=== PATIENT | male | born 1940 | race Caucasian/White ===

== ENCOUNTER 2020-08-14 05:20 | Inpatient (IN) | payer OTHER ==
[~2020-08-14] VITALS: Ht 172.7 cm; Wt 70.8 kg
[2020-08-14 05:40] LABS: BASOPHILS ABSOLUTE AUTO 0.07 K/mm3 (0.00-0.23); BASOPHILS PERCENT AUTO 1 % (0-2); EOSINOPHILS ABSOLUTE AUTO 0.18 K/mm3 (0.00-0.68); EOSINOPHILS PERCENT AUTO 2 % (0-6); Hematocrit 43.7 % (37.0-53.0); Hemoglobin 14.1 g/dL (13.5-17.5); IMMATURE GRAN ABSOLUTE AUTO 0.05 K/mm3 (0.00-0.10); IMMATURE GRAN PERCENT AUTO 1 % (0-1); LYMPHOCYTES ABSOLUTE AUTO 1.71 K/mm3 (0.84-5.20); LYMPHOCYTES PERCENT AUTO 18 % (21-46); MONOCYTES ABSOLUTE AUTO 0.92 K/mm3 (0.16-1.47); MONOCYTES PERCENT AUTO 9 % (4-13); Mean Corpuscular HGB 32.4 pg (26.0-34.0); Mean Corpuscular HGB Conc 32.3 g/dL (31.5-36.5); Mean Corpuscular Volume 101 fL (80-100); Mean Platelet Volume 11.2 fL (9.1-12.4); NEUTROPHILS ABSOLUTE AUTO 6.85 K/mm3 (1.96-9.15); NEUTROPHILS PERCENT AUTO 70 % (41-73); Platelet Count 292 K/mm3 (150-400); RDW Coefficient Variation 13.2 % (11.7-14.2); RDW Standard Deviation 49.1 fL (35.1-46.3); Red Blood Cell Count 4.35 M/mm3 (4.30-5.90); White Blood Cell Count 9.78 K/mm3 (4.00-11.30)
[2020-08-14 05:56] LABS: Albumin, Blood 3.2 g/dL (3.4-5.0); Albumin/Globulin Ratio 0.9 (0.8-1.8); Bilirubin, Total 2.4 mg/dL (0.1-1.0); Bun/Creatinine Ratio 29.6 (12.0-20.0); Calcium, Blood 8.7 mg/dL (8.5-10.1); Creatinine, Blood 1.35 mg/dL (0.60-1.20); Globulin, Blood 3.4 g/dL (2.2-4.0); Potassium, Blood 4.4 mmol/L (3.5-5.5); Total Protein, Blood 6.6 g/dL (6.4-8.2); Troponin I 0.044 ng/mL (0.000-0.040)
[2020-08-14 06:22] LABS: PCO2 Arterial 45.4 mmHg (35-45); PO2 Arterial 89.2 mmHg (80-100); pH Blood Arterial 7.37 (7.35-7.45)
[2020-08-14 09:12] LABS: PCO2 Arterial 43.6 mmHg (35-45); PO2 Arterial 93.2 mmHg (80-100); pH Blood Arterial 7.29 (7.35-7.45)
--- NOTE | 2020-08-14 10:36 | NUR ---
Spoke with hospitalist Freddie and discussed case. Pt to the ED with Respiratory Failure. Spouse Meg having difficulty with making a decision regarding Pt's code status. Pt originally told ED Provider he did not want to be intubated. Pt resting on gurny upon arrival. Pt's ED RN at bedside providing care. Spouse Meg also at bedside. Pt agitated and anxious throughout the visit. Ativan given X2 by his RN to assist with symptom management. Pt on BIPAP. Engaged in therapeutic discussion regarding code status. Discussed Pt's report to ED Provider regarding his wishes. Educated on life sustaining treatment including risk factors and implications of CPR. Answered questions and offered therapeutic listening. Meg is intermittently tearful and reports having difficulty with making a decision regarding Pt's code status. Continued therapeutic listeing and validated concerns. Listened as Meg expresses her wishes would be to do everything but does not think Pt would want that. Meg reports Pt stated to her during a casual conversation in the past saying "when it my time, let me go". Continued therapeutic listening. After several minutes answering questions, Meg reports she will honor his wishes of no CPR and no Intubation. Meg does report Pt would be ok with defibrillation and medications. Spoke with hospitalist Freddie and relayed wishes. Placed code status order for Limited Code of Defribillation and medications only per V/O from Freddie. Escorted spouse Meg to ICU waiting room and continued therapeutic listening and supportive visit. Provided Palliative Care contact information and instructed Meg to call with any questions or concerns. Meg is agreeable for Pt to received continued PC visits. Spoke with Pt's DISTRIBUTION LINEMAN Chery and discussed case. Palliative Care will remain available.
--- NOTE | 2020-08-14 11:00 | NUR ---
Assumed care of pt upon arrival to ICU 4 from emergency department at 1005. Pt transferred to ICU bed [place] [facility] [place] using slider sheet and 4 staff. Pt BiPAP dependent. BiPAP 15/8 and 30%. SpO2 90% or greater. Breathing labored with accessory muscle use noted, as well as retractions. Pt is limited code, with no intubation or CPR allowed. Lungs dim t/o. Pt agitated. Moves all extremities and attempting to remove BiPAP, as well as swinging legs over side rail of bed. Does not follow commands. Speech incomprehensible. Placed in bilat wrist restraints for BiPAP dependence with confusion and attempting to remove mask. Plan for IV precedex to manage agitation. Echo obtained, but pt very agitated and not holding still. Wallace catheter placed to obtain specimen and measure strict output with diuresis. Abd has atypical appearance due to scarring from previous surgeries. Pt's states appearace is baseline. No tenderness on palpation. ST per monitor. BP stable. Pt's spouse states they are not local to this area. They are from [place] and visited the [facility] for their anniversary. States pt was recently in ED at [place] for "popping a lung" and states he had "A chest tube placed and three cardioversions". States the chest tube was in place for three days. States that at baseline, pt is able to go to his doctor appointments and perform own self care. 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 Pt is currently DNI and no CPR. Meds and defibrillation okay. States pt has hx of CHF and takes lasix as needed. States his weight gain is very subtle and she is cautious with lasix because "his kidneys are bad too".
[2020-08-14 11:29] LABS: Source, Urine Catheter
[2020-08-14 11:35] LABS: Bilirubin, Urine Neg (Neg); Blood, Urine 2+ (Neg); Glucose Qualitative, Urine Neg (Neg); Ketones, Urine 1+ (Neg); Leukocyte Esterase, Urine Neg (Neg); Nitrite, Urine Neg (Neg); Protein, Urine 2+ (Neg); Specific Gravity, Urine 1.025 (1.003-1.022); Urobilinogen, Urine 1+ (Normal)
[2020-08-14 11:47] LABS: U Amphetamine Screen Not Detected; U Barbituate Screen Not Detected; U Benzodiazapine Screen Not Detected; U Buprenorphine Screen Not Detected; U Cannabinoids Screen Not Detected; U Cocaine Screen Not Detected; U Methadone Screen Not Detected; U Methamphetamine Screen Not Detected; U Opiates Screen Not Detected; U Oxycodone Screen Not Detected; U Phencyclidine Screen Not Detected; U Propoxyphene Screen Not Detected
[2020-08-14 11:56] LABS: Appearance, Urine Clear (Clear); Color, Urine Yellow (P-Yellow)
[2020-08-14 12:02] LABS: Mucus Mod (0-Heavy)
[2020-08-14 12:03] LABS: Squamous Epithelial Cells Few /hpf (Few)
[2020-08-14 12:04] LABS: Bacteria Rare /hpf
--- NOTE | 2020-08-14 13:00 | NUR ---
Boyd ASSISTED LIVING EXECUTIVE DIRECTOR to see patient. Provider states precedex is okay for maximum rate of 1.4 mcg/kg/hr, however he would like staff to use ativan to manage agitation and work on titrating precedex down to preserve BP. Rechecked lactic acid, as result of 8.3 is questioned. Plan to continue with BiPAP.
[2020-08-14 13:06] LABS: Base Excess Venous -4.5 mmol/L; Bicarbonate Venous 20.9 mmol/L (24.0-30.0); PCO2 Venous 42.5 mmHg (38-42); PO2 Venous 135 mmHg (38-42); pH Blood Venous 7.32 (7.34-7.37)
--- NOTE | 2020-08-14 13:16 | NUR ---
Echocardiogram completed.
[2020-08-14 13:21] LABS: Bun/Creatinine Ratio 26.9 (12.0-20.0); Creatinine, Blood 1.71 mg/dL (0.60-1.20); Potassium, Blood 4.7 mmol/L (3.5-5.5)
[2020-08-14 13:54] LABS: SARS-Cov-2 (COVID-19) PCR, MMC NEGATIVE (NEGATIVE)
[2020-08-14] MEDS ORDERED: ALBU90OI INH (14:15)
[2020-08-14] MEDS ORDERED: Amiodarone HCl200 MG PO (14:34)
[2020-08-14] MEDS ORDERED: ATOR20 PO (15:20)
[2020-08-14] MEDS ORDERED: ELIQUIS5 MG PO (15:20)
[2020-08-14] MEDS ORDERED: SYMBICORT 160-4.6 GM INH (15:22)
[2020-08-14] MEDS ORDERED: FISH OIL 1,2001 EAC7 PO (15:22)
[2020-08-14] MEDS ORDERED: FURO40 PO (15:23)
[2020-08-14] MEDS ORDERED: METO25ER PO (15:23)
[2020-08-14] MEDS ORDERED: CENTRUM SILVER1 EAC2 PO (15:24)
[2020-08-14] MEDS ORDERED: TIOT18 INH (15:29)
[2020-08-14] MEDS ORDERED: Percocet 5-3251 EACH PO (15:29)
--- NOTE | 2020-08-14 17:19 | NUR ---
Precedex down to 0.2 mcg/kg/hr. Agitation with repositioning and oral care, but pt calms down when stimulus is removed. Dr Miguel in to see pt. No new orders at this time. Spouse plans to stay at bedside beyond visiting hours as she does not have a place to day. Spouse effectively decreases pt's agitation when she is at bedside.
--- NOTE | 2020-08-14 18:33 | NUR ---
SUMMARY Pt on 0.2 mcg/kg/hr precedex. Pt has not had ativan since in ED. Ativan did not resolve agitation, so precedex started. Pt is responsive to pressure, with repositioning or oral care. Does not follow commands. Does not answer questions. Remains on BiPAP 18/8 and 35%. No accessory muscle use or retractions noted. COVID negative. SR per monitor with low-normal BP. Good urine output from cohen catheter. Spouse plans to spend night at pt's bedside. Will continue to closely monitor until care handoff and bedside report with oncoming RN.
--- NOTE | 2020-08-14 19:45 | NUR ---
ASSESSMENT/ASSUMED CARE PT LYING IN BED WITH BIPAP ON. AT BEDSIDE. PT OPENS EYES AND STARTS PULLING AT RESTRAINTS TO VERBAL STIMULI. PT VERY [id number]. PT QUIETS WITH REASSURANCE. BACK TO SLEEP QUICKLY. LUNGS DECREASED THROUGHOUT ON BIPAP 18/8 FIO2 30%. RESP EVEN AND NONLABORED. NO SOB OR COUGH NOTED. HEART RATE IRREGULAR. BP LOW BUT STABLE. NO EDEMA. BT+ BUT HYPOACTIVE. ABD SOFT AND NONTENDER. RICKETTS CATH PATENT DRAINING YELLOW URINE. IV 20G TO LEFT AC SALINE LOCKED, SITE CLEAR, FLUSHED WITHOUT DIFFICULTY. IV 20G TO LEFT FOREARM WITH PRECEDEX AT 0.2 MCQ/KG/HR, SITE CLEAR. BILAT SOFT WRIST RESTRAINTS ON. ANSWERED QUESTIONS FOR . PT SLEEPING.
--- NOTE | 2020-08-14 21:22 | NUR ---
ADL PT SLEEPING, AWAKENS TO VERBAL STIMULI. PT FOLLOWING INSTRUCTIONS REGARDING ORAL CARE AND ASSISTING WITH TURNING. BIPAP REMOVED FOR ORAL CARE, SPO2 DOWN TO 88% AFTER 5 MIN. BIPAP REAPPLIED. PT RESTING QUIETLY. BED MADE FOR . SUPPORT GIVEN TO .
--- NOTE | 2020-08-14 23:58 | NUR ---
REASSESSMENT PT AWAKENS EASILY AND FOLLOWING INSTRUSTIONS. SPEECH CLEAR BUT SLOW. PT ASKING QUESTIONS AND ANSWERING APPROP. ASSISTING WITH TURNING. ORAL CARE DONE. RESTRAINTS OFF FOR TRIAL RUN. REPOSITIONED. BIPAP BACK ON. O2 SATS DOWN TO 92% ON ROOMAIR FOR 5 MIN, BACK UP TO 98% ON THE BIPAP. PT BACK TO SLEEP QUICKLY
[2020-08-15 03:32] LABS: BASOPHILS ABSOLUTE AUTO 0.01 K/mm3 (0.00-0.23); BASOPHILS PERCENT AUTO 0 % (0-2); EOSINOPHILS PERCENT AUTO 0 % (0-6); Hematocrit 39.1 % (37.0-53.0); IMMATURE GRAN ABSOLUTE AUTO 0.05 K/mm3 (0.00-0.10); IMMATURE GRAN PERCENT AUTO 0 % (0-1); LYMPHOCYTES ABSOLUTE AUTO 0.36 K/mm3 (0.84-5.20); LYMPHOCYTES PERCENT AUTO 3 % (21-46); MONOCYTES ABSOLUTE AUTO 0.33 K/mm3 (0.16-1.47); MONOCYTES PERCENT AUTO 3 % (4-13); Mean Corpuscular HGB 32.9 pg (26.0-34.0); Mean Corpuscular HGB Conc 33.2 g/dL (31.5-36.5); Mean Corpuscular Volume 99 fL (80-100); Mean Platelet Volume 11.2 fL (9.1-12.4); NEUTROPHILS ABSOLUTE AUTO 11.14 K/mm3 (1.96-9.15); NEUTROPHILS PERCENT AUTO 94 % (41-73); Platelet Count 198 K/mm3 (150-400); RDW Coefficient Variation 13.2 % (11.7-14.2); RDW Standard Deviation 47.4 fL (35.1-46.3); Red Blood Cell Count 3.95 M/mm3 (4.30-5.90); White Blood Cell Count 11.89 K/mm3 (4.00-11.30)
[2020-08-15 03:45] LABS: International Normalized Ratio 1.3; Prothrombin Time Results 13.8 Sec (9.7-11.5)
[2020-08-15 03:54] LABS: Albumin, Blood 2.9 g/dL (3.4-5.0); Bilirubin, Total 1.9 mg/dL (0.1-1.0); Calcium, Blood 8.3 mg/dL (8.5-10.1); Creatinine, Blood 1.43 mg/dL (0.60-1.20); Magnesium, Blood 2.5 mg/dL (1.6-2.4); Phosphorus, Blood 4.3 mg/dL (2.5-4.9); Potassium, Blood 3.9 mmol/L (3.5-5.5); Total Protein, Blood 5.9 g/dL (6.4-8.2)
[2020-08-15 05:23] LABS: PCO2 Arterial 39.8 mmHg (35-45); PO2 Arterial 90.4 mmHg (80-100); pH Blood Arterial 7.47 (7.35-7.45)
--- NOTE | 2020-08-15 06:02 | NUR ---
SHIFT SUMMARY PT RESTING QUIETLY AT THIS TIME. AWAKENS TO VERBAL STIMULI. FOLLOWING INSTRUCTIONS AND ANSWERING QUESTIONS. AT BEDSIDE. PT SPEECH MORE CLEAR. STATES,"THIS IS MORE HOW HE NORMALLY IS". PT REMOVED FROM RESTRAINTS AT MIDNIGHT. PT ASSISTING WITH TURNING AND ORAL CARE. PRECEDEX CONT AT 0.2 MCQ/KG/HR. VSS. PT STATES,"I'M FEELING MUCH BETTER". REPORT TO ON COMING NURSE
--- NOTE | 2020-08-15 07:15 | NUR ---
Assumed care of pt at 0700. Bedside report received from Corinna GONSALES. Pt A&O x 4. Answers questions, follows commands, verbalizes needs. Pleasant and cooperative with care. Precedex at 0.2 mcg/kg/hr for BiPAP tolerance. Pt on BiPAP 18/8 and 30% FiO2. SpO2 90% or greater. SR per monitor. BP stable. Pt's spouse at bedside. Wallace catheter patent and draining.
--- NOTE | 2020-08-15 11:02 | NUR ---
Pt given break from BiPAP for oral care and PO medications, pt tolerated this well. Offered PO amiodarone, but pt declined because "my manager managed backup services stopped the amiodarone". Pt talking with in room, very pleasant and cooperative. Pt converted into AFIB with RVR, rate 135-145. BiPAP replaced, but this did not resolve AFIB with RVR. Dr Miguel notified. Digoxin given, but this did not work. 2.5 mg IV metoprolol given x 2. HR averaging 125-135. BP stable. Will continue to closely monitor.
--- NOTE | 2020-08-15 11:31 | NUR ---
Spoke with Dr Miguel this AM and discussed case. Waiting on medical records to determine Pt's baseline. Pt resting in bed with his eyes closed upon arrival. Pt on BIPAP. Pt's spouse Meg at bedside. Offered supportive visit and therapeutic listening. Meg expresses appreciation of visit. Spoke with Primary RN Chery and discussed case. Palliative Care will remain available.
--- NOTE | 2020-08-15 13:50 | NUR ---
DR. GENAO - [facility] SPOKE WITH DR. GENAO'S OFFICE IN [facility]. ACCORDING TO RECORDS, DR. GENAO STOPPED PT'S HOME AMIODARONE AFTER THE OFFICE VISIT ON 02/08/20 DUE TO PT BEING IN NORMAL SINUS RHYTHM AT THAT TIME. THEY STATE DR. GENAO WROTE IN HIS NOTE THAT HE WOULD CONSIDER ABLATION IF A. FIB RECURRED.
--- NOTE | 2020-08-15 15:16 | NUR ---
No progress on controlling atrial fibrillation. Cardiology consulted. Dr Flynn recommended metoprolol tartrate 25 mg Q6H instead of metoprolol succinate. Provider aware of pt's low BP. Plan to start amiodarone drip, no bolus.
--- NOTE | 2020-08-15 16:20 | NUR ---
Spoke with demurrage clerk prior to Pt visit and discussed case. Pt resting in bed upon arrival. Pt reports feeling better but is still struggling with memory. Spouse Meg is at bedside and states "he is still fuzzy". Engaged in therapeutic discussion regarding advanced care planning. Educated on disease process including trajectory of disease. Discussed the importance of planning for the future and having routine conversations with PCP regarding progression of disease. Discussed the importance of developing multiple plans as disease process takes its coarse. Educated on advanced directive and POLST. Educated on each section of AD to complete and the importance of appointing a healthcare customer loyalty representative. Educated on each section of POLST to complete. Educated on life sustaining measures including risk factors and implications of CPR. Pt reports being ok wit CPR and intuabted temporarily. Pt reports when he told the ED provider he didn't want to be intubated he was thinking about if he contrated COVID-19 and the risks of intubation with this disease. Confirmed Pt's wishes for full code status with Pt reporting wishes to be full code. Answered questions and offered therapeutic listening. Pt and spouse expresses appreciation of visit and report no other concerns at this time. Pt and spouse will consider completing AD and POLST at home. Spoke with Primary RN Chery and relayed Pt's wishes for full code. Chery will contact hospitalist for order change. Palliative Care will remain available.
--- NOTE | 2020-08-15 18:21 | NUR ---
SUMMARY Pt A&O x 4. Answers questions, follows commands, verbalizes needs. Pleasant and cooperative with care. Precedex has been off since 1100, when BiPAP was taken off. Pt has not worn BiPAP since. Currently on 2 LPM NC. SpO2 90% or greater. Atrial fibrillation per monitor since this AM. Digoxin IV and metoprolol IV given, but were not effective. Cardiology consulted. Amiodarone drip started. Currently at 1 mg/min. Pt remains in atrial fibrillation, rate 125-135. BP low-normal. Wallace catheter draining clear, yellow urine. Will continue to closely monitor until care handoff and bedside report with oncoming RN.
--- NOTE | 2020-08-15 22:00 | NUR ---
ASSUMED PT CARE FROM ILDA LEWIS AT 1915 PT SITTING UP IN BED. ALERT AND ORIENTED AND ABLE TO COMMUNICATE NEEDS. AT BEDSIDE. PT IS AFIB WITH HR 130'S. BP'S STABLE AT THIS TIME. AMIODARONE INFUSING AT 1MG/MIN. 2L VIA NC; SPO2 >95%. PT DENIES ANY SOB OR CHEST PAIN AT THIS TIME. RICKETTS CATH IS PATENT AND DRAINING TO GRAVITY. CALL LIGHT WITHIN REACH; PT ABLE TO MAKE NEEDS KNOWN.
[2020-08-16 03:48] LABS: Hematocrit 40.5 % (37.0-53.0); Hemoglobin 13.2 g/dL (13.5-17.5); Mean Corpuscular HGB 32.7 pg (26.0-34.0); Mean Corpuscular HGB Conc 32.6 g/dL (31.5-36.5); Mean Corpuscular Volume 100 fL (80-100); Mean Platelet Volume 11.4 fL (9.1-12.4); Platelet Count 245 K/mm3 (150-400); RDW Coefficient Variation 13.2 % (11.7-14.2); RDW Standard Deviation 48.6 fL (35.1-46.3); Red Blood Cell Count 4.04 M/mm3 (4.30-5.90); White Blood Cell Count 19.68 K/mm3 (4.00-11.30)
[2020-08-16 04:07] LABS: Albumin, Blood 3.1 g/dL (3.4-5.0); Albumin/Globulin Ratio 1.1 (0.8-1.8); Bilirubin, Total 1.2 mg/dL (0.1-1.0); Bun/Creatinine Ratio 43.7 (12.0-20.0); Calcium, Blood 8.7 mg/dL (8.5-10.1); Creatinine, Blood 1.35 mg/dL (0.60-1.20); Globulin, Blood 2.8 g/dL (2.2-4.0); Total Protein, Blood 5.9 g/dL (6.4-8.2)
--- NOTE | 2020-08-16 05:20 | NUR ---
END OF SHIFT SUMMARY PT SLEPT FOR MOST OF SHIFT; ABLE TO REPOSITION SELF AND MAKE NEEDS KNOWN. HR WAS LOW 100'S WHILE SLEEPING; UP TO 130'S WHILE AWAKE. REMAINS IN AFIB. AMIODARONE IS AT 0.5MG/MIN WITH 9.5 HOURS LEFT. PT NOTED TO BECOME SOB WHILE LYING FLAT OR WITH ANY EXERTION. 2L OF OXYGEN VIA NC; PT ONLY TOLERATED BIPAP FOR A SHORT AMOUNT OF TIME. VSS, SEE FLOWSHEET. REMAINED AT BEDSIDE ALL NIGHT. VERY SUPPORTIVE OF CARES. CALL LIGHT WITHIN REACH. WILL CONTINUE TO MONITOR UNTIL REPORT IS HANDED OFF TO ONCOMING RN.
--- NOTE | 2020-08-16 10:01 | NUR ---
DR. ADDISON HERE-ASSESSED PT. PLANS FOR D/C AMIODARONE GTT TODAY, START PO. PCU STATUS. ENCOURAGED CARDIAC/PULMONARY REHAB. PT UP TO STAND AT BEDSIDE WITH PHYSICAL THERAPIST-SOB WITH ACTIVITY. DECONDITIONED, WEAK WITH MOVEMENT. AT BEDSIDE
--- NOTE | 2020-08-16 14:17 | NUR ---
DENIES COMPLAINTS. CONTINUE TO MONITOR
--- NOTE | 2020-08-16 15:43 | NUR ---
DIURESING AFTER LASIX THIS AM, UO 1800 CC. REMAINS TACHYCARDIC 110'S. RESPIRATIONS UNLABORED AT REST, INCREASED EFFORT WITH ANY ACTIVITY. GOOD SPIRITS, COOPERATIVE.
--- NOTE | 2020-08-16 18:58 | NUR ---
UP TO CHAIR-DID WELL WITH TRANSFER-ABLE TO WALK FEW STEPS. NO SOB WITH ACTIVITY. USING PEP VALVE. GOOD APPETITE. VSS, AFIB 100'S.
[2020-08-17 03:21] LABS: Hematocrit 41.4 % (37.0-53.0); Hemoglobin 13.6 g/dL (13.5-17.5); Mean Corpuscular HGB 32.8 pg (26.0-34.0); Mean Corpuscular HGB Conc 32.9 g/dL (31.5-36.5); Mean Corpuscular Volume 100 fL (80-100); Mean Platelet Volume 11.2 fL (9.1-12.4); Platelet Count 240 K/mm3 (150-400); RDW Coefficient Variation 13.5 % (11.7-14.2); RDW Standard Deviation 49.7 fL (35.1-46.3); Red Blood Cell Count 4.15 M/mm3 (4.30-5.90); White Blood Cell Count 14.13 K/mm3 (4.00-11.30)
[2020-08-17 03:40] LABS: Anion Gap 3 mmol/L (6-16); Blood Urea Nitrogen 54 mg/dL (8-24); CO2, Blood 31 mmol/L (21-32); Calcium, Blood 8.1 mg/dL (8.5-10.1); Chloride, Blood 104 mmol/L (98-108); Creatinine, Blood 1.35 mg/dL (0.60-1.20); Glomerular Filtration Rate 54 (60-); Glucose, Blood 113 mg/dL (70-99); Phosphorus, Blood 3.2 mg/dL (2.5-4.9); Potassium, Blood 4.2 mmol/L (3.5-5.5); Sodium, Blood 138 mmol/L (136-145)
--- NOTE | 2020-08-17 06:18 | NUR ---
SHIFT SUMMARY NO ACUTE CHANGES THIS SHIFT. PT A&OX4. SP02>90% ON 2L NC. TELEMETRY READS AFIB, HR 90'S-110'S. PT DENIES PAIN. RICKETTS CATHETER DRAINING TO GRAVITY. PT UP IN CHAIR AT BEGINNING OF SHIFT. LAID AWAKE IN BED MOST OF NIGHT, UNABLE TO SLEEP. IN ROOM W/ PT DURING NIGHT. USED CALL LIGHT APPROPRIATELY. CALL LIGHT IN REACH. WILL GIVE REPORT TO ONCOMING NURSE.
--- NOTE | 2020-08-17 09:00 | NUR ---
AM NOTE... ASSUMED CARE OF PT AT 0700. PT IS A&Ox4 AND MIN ASSIST TO THE RECLINER CHAIR. PT IS ON 2L NC WITH O2 SATS >95%, PT'S O2 WAS TITRATED OFF AND HIS O2 SATS WERE >94% WHILE TALKING IF HE DID NOT MOVE, THE PT GOT UP FROM THE RECLINER CHAIR BACK TO BED AND HIS O2 SATS DROPPED DOWN TO 86%, PT WAS PUT BACK ON 2L NC AND RECOVERED QUICKLY. L/S EXP WHEEZES HEARD IN THE UPPER/MID LOBE AND DIM IN THE LOWER LOBES. PT IS IN AFIB WITH A CONTROLLED RATE IN THE 80'S-90'S AND 90'S-LOW 100'S WITH WALKING IN THE ROOM. PT DOES BECOME SLIGHTLY SOB WITH WALKING BUT RECOVERS QUICKLY ONCE HE IS SITTING DOWN. BT PRESENT AND HYPOACTIVE, ABD IS SOFT AND NONTENDER TO PALP. PT'S RICKETTS IS PATENT AND DRAINING DARK YELLOW URINE TO GRAVITY. BLADDER TRAINING IS STARTED, RICKETTS IS CLAMPED WITH ANTICIPATION OF PT D/C'ING HOME TODAY. NO EDEMA IS NOTED ON ASSESSMENT. BP IS STABLE. WILL CONTINUE TO MONITOR.
--- NOTE | 2020-08-17 11:01 | NUR ---
PT UPDATE.... DR. ORTIZ AT THE BEDSIDE FOR ASSESSMENT. PLAN IS FOR PT TO D/C HOME TODAY. PT'S AT THE BEDSIDE. WILL CONTINUE TO MONITOR.
[2020-08-17] MEDS ORDERED: CEFD300 PO (12:57)
[2020-08-17] MEDS ORDERED: VISBIOME 112.51 EACH PO (12:58)
[2020-08-17] MEDS ORDERED: LISI5 PO (12:59)
--- NOTE | 2020-08-17 15:11 | NUR ---
PT D/C HOME... PT'S RICKETTS WAS D/C'D PT WAS ABLE TO VOID A SMALL UNKNOWN AMOUNT AT APROX 1400. BLADDER SCAN WAS DONE AND FOUND 201MLS IN HIS BLADDER. PT DENIED THE NEED TO VOID AT THIS TIME. PT AND TOLD TO MONITOR THE PT'S VOIDING TO ENSURE THERE IS NO RETENTION ISSUES AND IF THERE ARE ISSUES TO GO INTO THEIR LOCAL ER. DISCHARGE INFORMATION AND EDUCATION WAS PROVIDED TO THE PT AND HIS IN VERBAL AND WRITTEN FORMAT. BOTH VERBALIZED THEIR UNDERSTANDING AND DENIED ANY QUESITONS. PT'S NEW MEDICATIONS WERE FAXED TO THE [facility], SINGLE DOSES OF HIS NEW MEDICATIONS WERE CALLED INTO THEIR LOCAL [facility] IN [place]. PT'S IVs WERE REMOVED WNL. ALL OF PT'S BELONGINGS PACKED AND SENT WITH THE PT.
== END 2020-08-17 15:30 | disposition home or self-care (01) | DRG 280 ==
LOC: ER 05:20 → ICUW 09:04 → ICUE 09:04
PROVIDERS: Emergency Medicine; Nurse Practitioner Acute Care; ADMIT Internal Medicine
PROC: 5A09357 Assistance with Respiratory Ventilation, Less than 24 Consecutive Hours, Continuous Positive Airway Pressure (ICD-10-PCS; principal; 2020-08-14)
DX: I13.0 Hypertensive heart and chronic kidney disease with heart failure and stage 1 through stage 4 chronic kidney disease, or unspecified chronic kidney disease (principal); I50.23 Acute on chronic systolic (congestive) heart failure; I21.A1 Myocardial infarction type 2; J96.01 Acute respiratory failure with hypoxia; R65.11 Systemic inflammatory response syndrome (SIRS) of non-infectious origin with acute organ dysfunction; J44.1 Chronic obstructive pulmonary disease with (acute) exacerbation; E87.2 Acidosis; I48.0 Paroxysmal atrial fibrillation; Z20.822 Contact with and (suspected) exposure to COVID-19; N18.30 Chronic kidney disease, stage 3 unspecified; G47.33 Obstructive sleep apnea (adult) (pediatric); Z95.1 Presence of aortocoronary bypass graft; I25.10 Atherosclerotic heart disease of native coronary artery without angina pectoris; Z87.891 Personal history of nicotine dependence; Z79.899 Other long term (current) drug therapy; Z98.890 Other specified postprocedural states
CPT/HCPCS: 36415; 36600; 51702; 71045; 76705; 80048; 80053; 80069; 81001; 82803; 83605; 83735; 83880; 84100; 84132; 84145; 84484; 85025; 85027; 85610; 87040; 87070; 87077; 87147; 87186; 87205; 93005; 93010; 93306; 94640; 94660; 94667; 94668; 96365; 96367; 96375; 96376; 97110; 97162; 97530; 99285-25; A9270; J0282; J0456; J0696; J1160; J1940; J2060; J2930; J7050; J7060; J7512; U0004